=== PATIENT | male | born 1970 | race Caucasian/White ===

== ENCOUNTER 2018-02-15 09:32 | Emergency (ER) | payer SELFPAY ==
--- NOTE | 2018-02-15 09:50 | Emergency Department Record ---
History of Present Illness - General Chief Complaint: Laceration(s) Stated Complaint: CUT LT RING FINGER Time Seen by Provider: 02/15/18 09:44 Source: Patient Mode of Arrival: Ambulatory Limitations: No limitations - History of Present Illness Initial Commments: 47 yo male presents from work with a left ring finger injury. He was working on scaffolding. His finger was pinched between the scaffold and the peg holding it when the scaffold moved. His has an injury to the top and bottom of the left index finger. No other injuries. Tetanus is uncertain. He is right handed. -: Minutes(s) Extremity Location: Left: Hand Place: Work Context: Accidental Associated Symptoms: None Treatments Prior to Arrival: Bandage - [place] Coma Scale Eye Response: (4) Open spontaneously Motor Response: (6) Obeys commands Verbal Response: (5) Oriented Olga Total: 15 - Related Data Hx Tetanus Toxoid Vaccination: Yes Year of Tetanus Vaccination: 2016 Patient Tetanus UTD (within 5 yrs): Yes Previous Rx's Medication Instructions Recorded Cephalexin [Keflex] 500 mg PO TID #21 cap 02/15/18 Allergies Allergy/AdvReac Type Severity Reaction Status Date / Time No Known Drug Allergies Allergy Verified 02/15/18 09:40 Travel Screening - Travel/Exposure Within Last 30 Days Have you traveled within the last 30 days?: No Review of Systems Constitutional: Denies: Chills, Fever Eyes: Denies: Eye discharge, Eye pain ENT: Denies: Congestion, Throat pain Respiratory: Denies: Cough Cardiovascular: Denies: Chest pain Endocrine: Denies: Fatigue Gastrointestinal: Denies: Diarrhea, Nausea, Vomiting Genitourinary: Denies: Dysuria Musculoskeletal: Reports: As per HPI, Arthralgia Skin: Reports: Other. Denies: Bruising, Change in color, Rash Neurological: Denies: Headache, Numbness, Weakness Psychiatric: Denies: Anxiety Hematological/Lymphatic: Denies: Easy bleeding, Easy bruising, Swollen glands Past Medical History - SOCIAL HISTORY Smoking Status: Never smoker Alcohol Use: None Drug Use: None - RESPIRATORY Hx Respiratory Disorders: No - CARDIOVASCULAR Hx Cardio Disorders: No - NEURO Hx Neuro Disorders: No - GI Hx GI Disorders: No - Hx Genitourinary Disorders: No - ENDOCRINE Hx Endocrine Disorders: No - MUSCULOSKELETAL Hx Musculoskeletal Disorders: No - PSYCH Hx Psych Problems: No - HEMATOLOGY/ONCOLOGY Hx Hematology/Oncology Disorders: No Family Medical History Any Significant Family History?: No Physical Exam - General General Appearance: Alert, Oriented x3, Cooperative, No acute distress Limitations: No limitations - Head Head exam: Atraumatic, Normal inspection Head exam detail: negative: Abrasion, Contusion, Hematoma - Eye Eye exam: Normal appearance. negative: Conjunctival injection, Scleral icterus - ENT ENT exam: Normal exam Ear exam: Normal external inspection Nasal Exam: Normal inspection Mouth exam: Normal external inspection - Neck Neck exam: Normal inspection - Cardiovascular Cardiovascular Exam: Regular rate, Normal rhythm, Normal heart sounds Peripheral Pulses: 2+: Radial (L) - Rectal Rectal exam: Deferred - exam: Deferred - Extremities Extremities exam: Full ROM (no limitation of finger extenison or flexion, strength is intact), Joint swelling, Normal capillary refill, Tenderness. negative: Normal inspection Image of Hand: 1 - 1.5cm linear laceration 2 - 1.5 abrasion/laceration - Neurological Neurological exam: Alert, Normal gait, Oriented X3. negative: Altered, Motor sensory deficit - Psychiatric Psychiatric exam: Normal affect, Normal mood - Skin Skin exam: Abrasion, Other (laceration) Course Vital Signs 02/15/18 09:40 Temperature 97.7 F Pulse Rate 66 Respiratory 20 Rate Blood Pressure 140/85 Pulse Ox 98 - Reevaluation(s) Reevaluation #1: The area was cleaned with soap and water The ring was removed immediately Digital Block Betadine skin prep Lidocaine 1% plain with Sensorcaine Plain 4ml digital block XR ordered Tetanus updated 02/15/18 09:48 02/15/18 10:36 XR no fracture. Possible dorsal punctate FB on surface. PROCEDURE Finger Laceration 1. Volar Laceration 14mm Irregular skin margins, examined in a bloodless field. No FB. No visible tendon laceration. Distal flexion is intact. Copious NS irrigation after ShurClens cleaning. Prolene 4-0 Suture used to close the wound. 5 Sutures placed 2. Dorsal laceration 12 mm. Irregular skin margins. Examined in bloodless field and taken through a ROM. Although a limited view due to wound size there appears to be a partial extensor tendon involvement. The patient has strong firm extension however. The area was copiously irrigated. A few punctate FB on the skin surface that were noted on the XR were easily removed. No FB seen deep in the wound. Prolene 4-0 suture used to close the wound. I explained a possible partial extensor tendon injury He will be splinted in extension. He was advised to call his work health for hand surgery follow up. 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 Keflex prescribed We discussed the injury, complications of non compliance with splint and antibiotics, signs and symptoms of infection and the need for for follow up through his work health or hand surgery to evaluate for a possible extensor tendon injury. No work with the left hand. 02/15/18 10:57 Disposition Disposition: Discharge Clinical Impression: Finger laceration Disposition: Home, Self-Care Condition: (1) Good Instructions: Laceration (ED) Additional Instructions: Keep the area dry and clean Use the splint for support and protection Return if you have any pus, redness, concerns or signs of infection Prescriptions: Cephalexin [Keflex] 500 mg PO TID #21 cap Referrals: SOHA LLOYD [MEDICAL DOCTOR] - Forms: Patient Portal Access Time of Disposition: 11:00 Quality - Quality Measures Quality Measures: N/A - Blood Pressure Screening Does Patient Have Any of the Following: No Blood Pressure Classification: Pre-Hypertensive BP Reading Systolic Measurement: 140 Diastolic Measurement: 85 Screening for High Blood Pressure: < Pre-Hypertensive BP, F/U Documented > [ [id number]] Pre-Hypertensive Follow-up Interventions: Referral to alternative/primary care provider.
[2018-02-15] MEDS ORDERED: Diph,Pert(Acell),Tet Vac 0.5 ML SYR IM ONE (10:11)
[2018-02-15] MEDS ORDERED: CEPHALEXIN 500 MG CAPSULE PO STA (10:41)
--- NOTE | 2018-02-17 08:06 | RADIOLOGY REPORT ---
EXAM: LEFT FOURTH FINGER HISTORY: FOURTH FINGER INJURY ONE HOUR AGO. PAIN AND LACERATION TO THE DISTAL FINGER. TECHNIQUE: Three views of the left fourth finger were obtained. Comparison: None. FINDINGS: No fracture or acute osseous abnormality. Several punctate densities are seen overlying the dorsal aspect of the distal left fourth finger just proximal to the DIP joint. Small foreign bodies cannot be excluded although these could lie on the skin surface. Mild arthritic changes are seen in the PIP joint. No fracture or acute osseous abnormality. No destructive or erosive change. IMPRESSION: 1. SEVERAL TINY PUNCTATE DENSITIES ARE SEEN IN THE SOFT TISSUES DORSAL TO THE DIP JOINT. IT IS UNCERTAIN IF THESE REPRESENT SMALL FOREIGN BODIES OR LIE ON THE SKIN SURFACE. 2. NO FRACTURE OR ACUTE OSSEOUS ABNORMALITY. JOB NUMBER: [id number] [facility]
== END 2018-02-15 11:14 | disposition home or self-care (01) ==
LOC: ER 09:32
DX: S61.225A Laceration with foreign body of left ring finger without damage to nail, initial encounter (principal); W23.0XXA Caught, crushed, jammed, or pinched between moving objects, initial encounter; Y99.0 Civilian activity done for income or pay
CPT/HCPCS: 12001; 12041; 73140; 90715; 96372; 99283; 99284